=== PATIENT | female | born 1955 | race Caucasian/White ===

== ENCOUNTER 2018-04-25 10:28 | Outpatient (CLI) | payer OTHER | END 2018-04-25 10:52 | disposition home or self-care (01) | LOC: LAB 10:28 | DX: R70.0 Elevated erythrocyte sedimentation rate (principal); I70.213 Atherosclerosis of native arteries of extremities with intermittent claudication, bilateral legs; Z79.899 Other long term (current) drug therapy ==

== ENCOUNTER 2018-04-25 11:50 | Outpatient (CLI) | payer OTHER | END 2018-04-25 11:59 | disposition home or self-care (01) | LOC: SONOGRAMA 11:50 | DX: R10.84 Generalized abdominal pain (principal) ==

== ENCOUNTER 2018-05-04 11:14 | Outpatient (CLI) | payer OTHER | END 2018-05-04 12:00 | disposition home or self-care (01) | LOC: NUCLEAR 11:14 | DX: I70.213 Atherosclerosis of native arteries of extremities with intermittent claudication, bilateral legs (principal) ==

== ENCOUNTER 2021-03-07 15:29 | Emergency (ER) | payer OTHER ==
[~2021-03-07] VITALS: Ht 160 cm; Wt 108.9 kg
[2021-03-07] MEDS ORDERED: LOSARTAN-HCTZ1 EAC2 (15:55)
== END 2021-03-07 19:13 | disposition home or self-care (01) ==
LOC: ER 15:29
DX: R10.9 Unspecified abdominal pain (principal)

== ENCOUNTER 2022-02-17 18:00 | Inpatient (IN) | payer OTHER ==
[~2022-02-17] VITALS: Ht 160 cm; Wt 102.1 kg
[~2022-02-17 18:00] MED LIST: LOSARTAN-HCTZ1 EAC2
--- NOTE | 2022-02-17 18:17 | NUR ---
SE RECIBE PACIENTE ALERTA Y ORIENTADA X3 QUIEN REFIERE PRESENTA DOLOR EN LA BOCA DEL [place] Y NAUSEAS DESDE HOY. SE MONITOREAN LOS SV Y SE UBICA EN [place].
--- NOTE | 2022-02-17 19:13 | NUR ---
SE ORIENTA PTE SOBRE TX MEDICO EL CUAL REFIERE ENTENDER.SE LE EXTRAEN MUESTRAS BAJO MEDIDAS ASEPTICAS,SE CANALIZA Y SE ADMINISTRA MEDICAMENTO GENEVA ORDEN MEDICA.
[2022-02-19] MEDS ORDERED: PANTOPRAZOLE SO40 MG (11:56)
[2022-02-19] MEDS ORDERED: FAMOTIDINE40 MG (11:56)
[2022-02-19] MEDS ORDERED: TOVIAZ8 MG (11:57)
[2022-02-19] MEDS ORDERED: BETAXOLOL HCL10 MG (11:57)
[2022-02-19] MEDS ORDERED: OXYBUTYNIN CHLOR5 MG (11:57)
== END 2022-02-20 18:08 | disposition home or self-care (01) | DRG 446 ==
LOC: ER 18:00 → SURH 02-18 05:48
PROVIDERS: ADMIT Internal Medicine; ATTEND Internal Medicine
PROC: BW21YZZ Computerized Tomography (CT Scan) of Abdomen and Pelvis using Other Contrast (ICD-10-PCS; principal; 2022-02-18)
DX: K80.80 Other cholelithiasis without obstruction (principal); K29.60 Other gastritis without bleeding; R10.13 Epigastric pain; I10 Essential (primary) hypertension; R63.0 Anorexia; Z20.822 Contact with and (suspected) exposure to COVID-19

== ENCOUNTER 2022-02-23 19:03 | Inpatient (IN) | payer OTHER ==
[~2022-02-23] VITALS: Ht 152.4 cm; Wt 104.3 kg
[~2022-02-23 19:03] MED LIST changes: +BETAXOLOL HCL10 MG; +FAMOTIDINE40 MG; +OXYBUTYNIN CHLOR5 MG; +PANTOPRAZOLE SO40 MG; +TOVIAZ8 MG
[2022-02-23] MEDS ORDERED: DICYCLOMINE HCL 10 MG (21:42)
== END 2022-03-04 22:17 | disposition home or self-care (01) | DRG 418 ==
LOC: ER 19:03 → SURG 02-24 01:48
PROVIDERS: ADMIT Internal Medicine; ATTEND Internal Medicine
PROC: BF37ZZZ Magnetic Resonance Imaging (MRI) of Pancreas (ICD-10-PCS; 2022-02-24)
PROC: 02HV33Z Insertion of Infusion Device into Superior Vena Cava, Percutaneous Approach (ICD-10-PCS; 2022-02-26)
PROC: BW40ZZZ Ultrasonography of Abdomen (ICD-10-PCS; 2022-02-27)
PROC: 0FT44ZZ Resection of Gallbladder, Percutaneous Endoscopic Approach (ICD-10-PCS; principal; 2022-03-02)
PROC: 0FJD8ZZ Inspection of Pancreatic Duct, Via Natural or Artificial Opening Endoscopic (ICD-10-PCS; 2022-03-03)
DX: K85.90 Acute pancreatitis without necrosis or infection, unspecified (principal); K80.40 Calculus of bile duct with cholecystitis, unspecified, without obstruction; Z68.41 Body mass index [BMI] 40.0-44.9, adult; K29.70 Gastritis, unspecified, without bleeding; I10 Essential (primary) hypertension; E66.01 Morbid (severe) obesity due to excess calories; Z20.822 Contact with and (suspected) exposure to COVID-19